=== PATIENT | male | born 1955 | race African-American/Black ===

== ENCOUNTER 2016-08-16 14:38 | Emergency (ER) | payer OTHER ==
[~2016-08-16] VITALS: Ht 167.6 cm; Wt 83.9 kg
[~2016-08-16 14:38] MED LIST: ACETAMINOPHEN325 M1 PO; AMBIEN 5 MG TABL5 M1 PO; AUGMENTIN 875875 MG PO; DYAZIDE 37.5-21 EACH PO; DYRENIUM100 MG; LISINOPRIL2.5 MG PO; MOM PO; NOHOMEMEDICATIONS; NORCO 5-325 TA1 EACH PO; TRIAMTERENE-HC1 EAC3 PO
[2016-08-16] MEDS ORDERED: IBUPROFEN200 M1 PO (15:20)
[2016-08-16] MEDS ORDERED: TIZANIDINE HCL4 MG PO (15:20)
[2016-08-16 16:25] LABS: ABSOLUTE NEUTROPHILS 3.4 thou/uL (1.4-8.2); EOSINOPHILS 5.5 % (0.0-3.0); HEMATOCRIT 39.3 % (42.0-52.0); HEMOGLOBIN 12.9 gm/dL (14.0-18.0); LYMPHOCYTES 32.3 % (24.0-44.0); MANUAL DIFF NO; MCH 29.5 pg (26.0-34.0); MCHC 32.9 % (28.0-37.0); MCV 89.8 fL (80.0-100.0); MONOCYTES 6.6 % (1.0-8.0); PLATELET COUNT 230 thou/uL (150-400); POLYS 54.6 % (36.0-66.0); RBC 4.38 mil/uL (4.50-6.00); RDW 13.6 % (10.5-14.5); WBC 6.2 thou/uL (4.0-11.0)
[2016-08-16 16:28] LABS: ANION GAP 6 mmol/L (7-16); BUN 21 mg/dL (7-18); CHLORIDE 102 mmol/L (98-107); CO2 31 mmol/L (21-32); CREATININE 1.7 mg/dL (0.6-1.3); GLUCOSE 105 mg/dL (70-99); POTASSIUM 3.8 mmol/L (3.5-5.1); SODIUM 139 mmol/L (136-145)
[2016-08-16 16:44] LABS: ALBUMIN 3.5 g/dL (3.4-5.0); ALKALINE PHOSPHATASE 71 U/L (46-116); SGOT 22 U/L (15-37); SGPT 30 U/L (30-65); TOTAL BILIRUBIN 0.3 mg/dL (<0.1-1.0)
[2016-08-16 16:54] LABS: DIRECT BILIRUBIN < 0.1 mg/dL (<0.1-0.3)
[2016-08-16] MEDS ORDERED: APAP500 PO (17:55)
== END 2016-08-16 18:33 | disposition home or self-care (01) ==
LOC: ER 14:38
PROVIDERS: Emergency Medicine
DX: N17.9 Acute kidney failure, unspecified (principal); E86.0 Dehydration; Z88.8 Allergy status to other drugs, medicaments and biological substances